=== PATIENT | female | born 1950 | race Caucasian/White ===

== ENCOUNTER 2019-01-31 16:38 | Emergency (ER) | payer MEDICARE, OTHER ==
[2019-01-31 16:59] VITALS: BP 160/67
[2019-01-31] MEDS ORDERED: predniSONE TAB* 20 MG PO ONE (17:10)
--- NOTE | 2019-01-31 17:11 | UC ---
UC General HPI - HPI Summary HPI Summary: Pt presents with c/o of sudden onset of swelling to left upper arm ~ 1 hour after getting pneumonia vaccine today at PCP office. Pt states that she has been applying ice through out the day and the swelling has been worsening. Pt denies any SOB or difficulty swallowing. - History of Current Complaint Chief Complaint: UCAllergicReaction Stated Complaint: PAIN AROUND INJECTION SITE Time Seen by Provider: 01/31/19 16:55 Hx Obtained From: Patient Onset/Duration: Sudden Onset, Still Present, Worse Since Timing: Constant Onset Severity: Moderate Current Severity: Severe Pain Intensity: 5 Associated Signs & Symptoms: Positive: Other - swelling right upper arm at injection site - Allergy/Home Medications Allergies/Adverse Reactions: Allergies Allergy/AdvReac Type Severity Reaction Status Date / Time No Known Allergies Allergy Verified 01/31/19 16:52 PMH/Surg Hx/FS Hx/Imm Hx Previously Healthy: Yes Endocrine History: Hypothyroidism, Dyslipidemia Cardiovascular History: Hypertension - Surgical History Surgical History: Yes Surgery Procedure, Year, and Place: Abdominal exploratory laprascopy d/t endometrious - Family History Known Family History: Positive: Cardiac Disease - Social History Occupation: Retired Lives: With Family Alcohol Use: Occasionally Alcohol Amount: 1 glass wine daily Substance Use Type: None Smoking Status (MU): Never Smoked Tobacco Have You Smoked in the Last Year: No - Immunization History Vaccination Up to Date: Yes Review of Systems All Other Systems Reviewed And Are Negative: Yes Constitutional: Positive: Negative Skin: Positive: Other - swelling, mild erythema, left upper arm Eyes: Positive: Negative ENT: Positive: Negative Respiratory: Positive: Negative Cardiovascular: Positive: Negative Gastrointestinal: Positive: Negative Genitourinary: Positive: Negative Motor: Positive: Negative Neurovascular: Positive: Negative Musculoskeletal: Positive: Edema - left upper arm Neurological: Positive: Negative Psychological: Positive: Negative Is Patient Immunocompromised?: No Physical Exam Triage Information Reviewed: Yes Appearance: Well-Appearing Vital Signs: Initial Vital Signs Temp 98.4 F 01/31/19 16:53 Pulse 81 01/31/19 16:53 Resp 18 01/31/19 16:53 BP 160/67 01/31/19 16:53 Pulse Ox 98 01/31/19 16:53 Vital Signs Reviewed: Yes Eye Exam: Normal ENT: Positive: Hearing grossly normal Dental Exam: Normal Neck exam: Normal Respiratory: Positive: No respiratory distress Musculoskeletal: Positive: Edema @ - left upper arm Neurological Exam: Normal Psychological Exam: Normal Skin Exam: Other - left upper arm, entire humerus area is swollen, firm and warm , mild erythema. Course/Dx - Diagnoses Provider Diagnosis: Vaccination reaction Discharge - Sign-Out/Discharge Documenting (check all that apply): Patient Departure All imaging exams completed and their final reports reviewed: No Studies - Discharge Plan Condition: Stable Disposition: HOME Prescriptions: predniSONE TAB* [Deltasone 10 MG TAB*] 30 mg PO DAILY #12 tab Patient Education Materials: Antihistamine (By mouth), Urticaria (ED) Referrals: Shayla Casillas NP [Primary Care Provider] - As Soon As Possible Additional Instructions: Please follow up with your PCP as soon as possible. When you return to your house, please take the antihistamine, diphenhydramine also known as Benadryl. - Billing Disposition and Condition Condition: STABLE Disposition: Home
== END 2019-01-31 17:25 | disposition home or self-care (01) ==
LOC: UCEAST 16:38
DX: T88.1XXA Other complications following immunization, not elsewhere classified, initial encounter (principal); Y84.8 Other medical procedures as the cause of abnormal reaction of the patient, or of later complication, without mention of misadventure at the time of the procedure; E03.9 Hypothyroidism, unspecified; E78.5 Hyperlipidemia, unspecified; I10 Essential (primary) hypertension
CPT/HCPCS: 99212; G0463; J7512